=== PATIENT | female | born 1965 | race African-American/Black ===

== ENCOUNTER 2016-03-05 17:57 | Emergency (ER) | payer OTHER ==
[~2016-03-05] VITALS: Ht 162.6 cm; Wt 104.3 kg
--- NOTE | ~2016-03-05 | EKG ---
[address] [address] ELECTROCARDIOGRAM REPORT Name: JACQUES STOLL Room [facility] [id number] Admission: 03/05/16 Attend Phys: Discharge: 03/05/16 Date of : 63 Report #: [id number] THIS REPORT FOR: //name// [facility] ED Test Date: 2016-03-05 Test Time: 18:04:06 Pat Name: JACQUES STOLL Department: Room: Gender: F Heel Shaper: ANNE MARIE : 1965 Requested By: George Ruano Order Number: [id number] MD: Babatunde Jerome Measurements Intervals [place] Rate: 74 P: 43 VT: 138 QRS: 15 QRSD: 103 T: 23 QT: 360 QTc: 400 Interpretive Statements Sinus rhythm No significant abnormality No previous ECG available for comparison Electronically Signed On 03-06-2016 8:02:05 LOG CHECK SCALER by Babatunde Jerome [email or web address] <ELECTRONICALLY SIGNED> By: Babatunde Jerome MD, [facility] 03/06/16 0802 1804 1804 Babatunde Jerome MD, FACC /EPI
[2016-03-05] MEDS ORDERED: COZAAR 25 MG TA25 M1 PO (18:17)
[2016-03-05 18:22] LABS: ABSOLUTE NEUTROPHILS 5.5 thou/uL (1.4-8.2); EOSINOPHILS 2.9 % (0.0-3.0); HEMATOCRIT 40.1 % (37.0-47.0); HEMOGLOBIN 13.6 gm/dL (12.0-15.0); LYMPHOCYTES 31.4 % (24.0-44.0); MCH 27.3 pg (26.0-34.0); MCV 80.3 fL (80.0-100.0); MONOCYTES 6.6 % (1.0-8.0); PLATELET COUNT 256 thou/uL (150-400); POLYS 58.1 % (36.0-66.0); WBC 9.5 thou/uL (4.0-11.0)
[2016-03-05 18:24] LABS: MANUAL DIFF NO
[2016-03-05 18:30] LABS: ANION GAP 8 mmol/L (7-16); BUN 18 mg/dL (7-18); CALCIUM 9.5 mg/dL (8.5-10.1); CHLORIDE 100 mmol/L (98-107); CO2 31 mmol/L (21-32); CREATININE 1.2 mg/dL (0.6-1.3); GLUCOSE 79 mg/dL (70-99); POTASSIUM 3.3 mmol/L (3.5-5.1); SODIUM 139 mmol/L (136-145)
[2016-03-05 18:44] LABS: NT-PRO BRAIN NAT PEPTIDE 19 pg/mL (<300); TROPONIN-I < 0.04 ng/mL (<0.04-0.07)
[2016-03-05] MEDS ORDERED: NAPROSYN500 MG PO (21:30)
[2016-03-05 21:41] VITALS: BP 123/67
== END 2016-03-05 21:43 | disposition home or self-care (01) ==
LOC: ER 17:57
PROVIDERS: Nurse Practitioner
DX: R07.89 Other chest pain (principal); I10 Essential (primary) hypertension; E66.9 Obesity, unspecified